=== PATIENT | female | born 1960 | race Caucasian/White ===

== ENCOUNTER 2021-01-21 07:43 | Outpatient (CLI) | payer MEDICARE, MEDICAID, SELFPAY | END 2021-01-21 07:44 | disposition home or self-care (01) | PROVIDERS: PCP Family Medicine; Visit Provider Family Medicine | DX: H91.90 Unspecified hearing loss, unspecified ear (principal) | CPT/HCPCS: 92567; 92587 ==

== ENCOUNTER 2022-10-12 13:01 | Outpatient (CLI) | payer MEDICARE, MEDICAID, SELFPAY | END 2022-10-12 13:02 | disposition home or self-care (01) | LOC: ANHAUDASC 13:02 | PROVIDERS: PCP Family Medicine; Visit Provider Physician Assistant | DX: Z01.10 Encounter for examination of ears and hearing without abnormal findings (principal) | CPT/HCPCS: 92555; 92567; 92587 ==

== ENCOUNTER 2024-01-09 09:37 | Outpatient (CLI) | payer MEDICARE, MEDICAID, SELFPAY | END 2024-01-09 09:38 | disposition home or self-care (01) | LOC: ANHAUDIO 09:37 | PROVIDERS: PCP Physician Assistant; Visit Provider Physician Assistant | DX: Z01.110 Encounter for hearing examination following failed hearing screening (principal) | CPT/HCPCS: 99199 ==

== ENCOUNTER 2024-04-09 08:06 | Outpatient (CLI) | payer MEDICARE, SELFPAY | END 2024-04-09 08:07 | disposition home or self-care (01) | LOC: ANHAUDIO 08:06 | PROVIDERS: PCP Physician Assistant | DX: Z01.110 Encounter for hearing examination following failed hearing screening (principal) | CPT/HCPCS: 92567 ==

== ENCOUNTER 2024-07-20 10:59 | Emergency (ER) | payer MEDICARE, SELFPAY ==
--- NOTE | ~2024-07-20 | XR_ITS ---
EXAMINATION: XR tibia fibula LT 2V DATE: 07/20/2024 11:49 INDICATION: Left leg pain post ORIF one week prior TECHNIQUE: Anteroposterior and lateral views of the left tibia and fibula were obtained on overlappin g proximal and distal images. COMPARISON: None. FINDINGS: Lateral plate and screw fixation spanning a fracture of the mid left fibular diaphysis which is in ne ar-anatomic alignment with not yet solidly bridging callus formation versus bone graft material seen posterior to the fracture on the lateral projection. There is an anterolateral plate and screw fixati on for fixation of a distal metaphyseal fracture of the left tibia which is also in near-anatomic ali gnment with no discernible callus formation. No other acute fractures identified. 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 No knee or ankle joint effusions. There is splinting mat erial posterior to the left lower leg. IMPRESSION: 1. Near-anatomic alignment of internally fixed left fibular diaphyseal and distal left tibial metadia physeal fractures. No acute osseous abnormality. Reviewed, dictated and finalized at location A. IMPRESSION: 1. Near-anatomic alignment of internally fixed left fibular diaphyseal and dist al left tibial metadiaphyseal fractures. No acute osseous abnormality.
[2024-07-20 11:04] VITALS: BP 130/59; PULSE 100; RESP 19; TEMP 36.7; O2SAT 96
[2024-07-20 11:09] VITALS: RESP 17
--- NOTE | 2024-07-20 14:03 | ED.GENADULT ---
HPI - General Adult General Chief complaint: Unspecified Stated complaint: ?cast evaluation Source: family Mode of arrival: EMS Limitations: language barrier and physical limitation History of Present Illness HPI narrative: This is a 64-year-old female, nonverbal at baseline oriented x1 at baseline, brought in by EMS from her rehab facility with concern for her splint. The patient underwent unremarkable surgery at [facility] for a left lower leg fracture. This morning staff found the patient splint out of place. The patient's family member was concerned for potential fracture and was advised to come here for evaluation. The patient does not indicate any new pain. Related Data Allergies Allergy/AdvReac Type Severity Reaction Status Date / Time diphenhydramine Allergy Unknown Verified 07/20/24 11:12 pseudoephedrine Allergy Unknown Verified 07/20/24 11:12 [[facility] Review of Systems Review of Systems: ROS unobtainable: Yes unobtainable due to medical condition PMFSH Past Medical History Medical History Left fibular fracture Left tibial fracture Nonverbal Surgical History Surgical History History of ankle surgery Social History Social History Smoking status: Never smoker Substance use: never Living arrangements: senior living Exam Narrative: GENERAL: Well-developed, well-nourished, and in no acute distress. HEAD: Normocephalic, atraumatic. EYES: PERRLA and EOMI. CHEST: Clear to auscultation. No respiratory distress. No wheezes rales or rhonchi HEART: Regular rate and rhythm. No murmur heard. Normal peripheral pulses. EXTREMITIES: Well-approximated, clean, dry, non erythematous surgical wounds noted over the anterior and medial aspect of the left tibia with sutures in place. The patient's splint and web roll are not adequately secured. Normal range of motion. No edema. SKIN: Warm, dry, no rash. NEURO: Alert and oriented x3. No focal deficit. Moving all 4 limbs spontaneously PSYCH: Normal mood and affect. Course Course Emergency Course: 14:00 - X-ray shows near anatomic alignment without changes concerning for fracture. Splint was placed with good neurovascular exam. Will discharge. I discussed the findings and recommendations with the patient's family member. Discussed return and emergency precautions including signs/symptoms of septic arthritis and neurovascular compromise. The patient's family member voiced understanding and agreement with the plan. All questions answered to their satisfaction. Vital Signs Vital signs: Vital Signs Temperature 98.1 F 07/20/24 11:04 Pulse Rate 100 07/20/24 11:04 Respiratory Rate 19 07/20/24 11:04 Blood Pressure 130/59 L 07/20/24 11:04 Pulse Oximetry 96 07/20/24 11:04 Oxygen Delivery Room Air 07/20/24 11:04 Temperature 98.1 F 07/20/24 11:04 Pulse Rate 79 07/20/24 15:39 Respiratory Rate 20 07/20/24 15:39 Blood Pressure 139/59 L 07/20/24 15:39 Pulse Oximetry 98 07/20/24 15:39 Oxygen Delivery Room Air 07/20/24 11:04 Medical Decision Making MDM Narrative Medical decision making narrative: Plan: Imaging, pain control, a splint replacement, reassess Differential Diagnosis Differential Diagnosis: Fracture, surgical wound infection, other Vital Signs Vital Signs: Vital Signs Temperature 98.1 F 07/20/24 11:04 Pulse Rate 100 07/20/24 11:04 Respiratory Rate 19 07/20/24 11:04 Blood Pressure 130/59 L 07/20/24 11:04 Pulse Oximetry 96 07/20/24 11:04 Oxygen Delivery Room Air 07/20/24 11:04 Temperature 98.1 F 07/20/24 11:04 Pulse Rate 79 07/20/24 15:39 Respiratory Rate 20 07/20/24 15:39 Blood Pressure 139/59 L 07/20/24 15:39 Pulse Oximetry 98 07/20/24 15:39 Oxygen Delivery Room Air
[2024-07-20 15:39] VITALS: BP 139/59; PULSE 79; RESP 20; O2SAT 98
--- NOTE | 2024-07-20 15:56 | PC.NURSE ---
New short leg posterior splint placed to left foot per verbal order by EDP. Pt tolerated the procedure without difficulty.
== END 2024-07-20 16:00 ==
PROVIDERS: Emergency Provider Preventive Medicine Aerospace Medicine; PCP Physician Assistant
DX: M79.605 Pain in left leg (principal); S82.832D Other fracture of upper and lower end of left fibula, subsequent encounter for closed fracture with routine healing; S82.302D Unspecified fracture of lower end of left tibia, subsequent encounter for closed fracture with routine healing; X58.XXXD Exposure to other specified factors, subsequent encounter
CPT/HCPCS: 73590; 99283